=== PATIENT | female | born 1970 | race African-American/Black ===

== ENCOUNTER → 2018-10-23 | Outpatient (CLI) | payer OTHER ==
--- NOTE | 2018-10-23 13:29 | Diagnostic Imaging Report ---
INDICATION: Fifth toe fracture. Followup. COMPARISON: None. FINDINGS: Three radiographic views of the fifth toe of the left foot were obtained. There are two separate phalanges of the left toe. Oblique view demonstrates transverse oriented fracture through the distal phalanx. Interphalangeal joint space is maintained. There is no significant displacement of fracture fragments. No unexpected radiopaque foreign bodies are seen. IMPRESSION: 1. Acute fracture of the distal phalanx of the left fifth toe. No evidence of significant displacement. Dictated by: Dictated on workstation # [id number]
== END ==
LOC: RAD 12:18
PROVIDERS: ATTEND Internal Medicine
DX: S92.532D Displaced fracture of distal phalanx of left lesser toe(s), subsequent encounter for fracture with routine healing (principal)
CPT/HCPCS: 73660